=== PATIENT | male | born 1950 | race Caucasian/White ===

== ENCOUNTER → 2023-06-06 12:39 | Outpatient (CLI) | payer OTHER, SELFPAY ==
--- NOTE | 2023-06-06 12:43 | CA_ITS ---
APPROVED REPORT EXAM: Comprehensive 2D, Doppler, and color-flow Echocardiogram Enrollment Specialist: Elsa Marcos RVT Ht: 5 ft 11 in Wt: 216lbs BSA: 2.18 BP: 140/80 mmHg Indications: A-FIB,HTN,HEART DISEASE 2D Dimensions LVOT 2.21 cm (M/F) 1.5-2.5 LA Volume 71.90 mL LA Volume Index 32.98 mL/m2 (M/F) 16-34 M-Mode Dimensions RVDd 3.66 cm (0.9-2.6) LA Diam 4.17 cm (1.9-4.0) LVDd 5.31 cm (3.5-5.7) Ao Diam 3.50 cm (2.0-3.7) LVDs 3.39 cm (3.5-5.7) IVSd 1.03 cm (0.6-1.1) PWd 0.54 cm (0.6-1.1) EF (Teich) 65.30% FS 36.20% EDV (Teich) 135.90 mL TAPSE 2.90 (<1.7) ESV (Teich) 47.10 mL LV Diastology E Decel Time 90.00 (160-240 msec) E/A Ratio 1.2 MED E' 10.80 (< 7 cm/sec) E'/MED E' Ratio 8.47 (>14) LAT E' 6.70 (<10 cm/sec) E/LAT E' Ratio 13.66 (>14) Aortic Valve AO Peak GR. 7.30 mmHg Mitral Valve MV E Max Darnell. 91.00 (40-130 cm/s) MV A Velocity 75.00 (40-130 cm/s) E/A Ratio 1.22 MV Decel. Time 90.00 (160-240 ms) MV PHT 26.00 ms Pulmonary Valve PV Peak Velocity 88.00 (50-150 cm/s) Tricuspid Valve TR P. Velocity 286.00 cm/s RAP Estimate 10.00 mmHg RVSP 42.80 mmHg Left Ventricle The left ventricle is normal size. The left ventricular systolic function is normal. The left ventricular ejection fraction is within the normal range. There is increased LV wall thickness. Mild concentric LVH is present. There is normal LV segmental wall motion. The left ventricular diastolic function is normal. LVEF is 60%. Right Ventricle The right ventricle is mildly dilated. The right ventricular systolic function is normal. Atria The left atrium size is normal. The right atrium size is normal. Aortic Valve The aortic valve is mildly thickened. There is no aortic valvular stenosis. No aortic regurgitation is present. Mitral Valve The mitral valve is mildly thickened. No evidence of mitral valve stenosis. Trace mitral regurgitation. Tricuspid Valve The tricuspid valve leaflets are thin and pliable. Trace tricuspid regurgitation. RVSP is 20-25 mmHg. Pulmonic Valve The pulmonary valve is normal in structure. Mild pulmonic regurgitation. Great Vessels The aortic root is normal in size. The ascending aorta is normal in size. IVC is normal in size and collapses >50% with inspiration. Pericardium There is no pericardial effusion. Other Information Study Quality: Fair Conclusion Normal biventricular systolic function. Mild concentric LVH. Mild RV dilation. No significant valvular disease. Electronically signed by : Carmen Braga, 06/08/2023 10:39:59
== END ==
PROVIDERS: PCP Nurse Practitioner; Visit Provider Chiropractor
DX: I10 Essential (primary) hypertension; I25.89 Other forms of chronic ischemic heart disease
CPT/HCPCS: 93306